=== PATIENT | male | born 1965 | race African-American/Black ===

== ENCOUNTER 2016-12-15 17:51 | Emergency (ER) | payer OTHER ==
[~2016-12-15] VITALS: Ht 177.8 cm; Wt 113.4 kg
[2016-12-15] MEDS ORDERED: TOBREX5 ML RIGHT EYE (20:11)
[2016-12-15] MEDS ORDERED: NORCO 5/3251 TABLET PO (20:11)
[2016-12-15] MEDS ORDERED: ERYTHROMYCIN O3.5 GM RIGHT EYE (20:11)
[2016-12-15 20:20] VITALS: BP 141/75
== END 2016-12-15 20:21 | disposition home or self-care (01) ==
LOC: EME 17:51
DX: S05.01XA Injury of conjunctiva and corneal abrasion without foreign body, right eye, initial encounter (principal); X12.XXXA Contact with other hot fluids, initial encounter; Y93.89 Activity, other specified
CPT/HCPCS: 99281; 99284